=== PATIENT | male | born 1960 | race African-American/Black ===

== ENCOUNTER 2025-04-13 14:35 | Inpatient (IN) | payer OTHER ==
[2025-04-13] MEDS: SODIUM CHLORIDE 0.9% 500 ML INFUS.BAG IV ONE (15:34)
[2025-04-13 15:36] LABS: ABSOLUTE IMMATURE GRANULOCYTES 0.01 x10^3/uL (0.0-0.031); BASOPHILS # 0.04 x10^3/uL (0.01-0.08); EOSINOPHIL % 5.7 % (0.8-7.0); EOSINOPHILS # 0.33 x10^3/uL (0.04-0.54); MCHC 32.6 g/dl (32.3-36.5); MEAN CELL VOLUME 91.9 fl (79.0-92.2); MEAN PLT VOLUME 10.1 fl (9.4-12.4); MONOCYTE # 0.44 x10^3/uL (0.30-0.82); MONOCYTE % 7.6 % (5.3-12.2); RDW 13.3 % (12.2-16.4)
[2025-04-13 15:59] LABS: GLUCOSE,RANDOM 83.0 mg/dL (74-106); TOT PROT 6.9 g/dl (6.4-8.2)
[2025-04-13 16:01] LABS: CO2 27.0 mmol/L (21-32)
[2025-04-13 16:02] LABS: ALK PHOS 57.0 U/L (40-150)
[2025-04-13 16:05] LABS: CREATININE 1.16 mg/dL (0.55-1.3); SGOT/AST 30.0 U/L (5-34); SGPT/ALT 17.0 U/L (0-55)
[2025-04-13 16:15] LABS: ERYTHROCYTE SEDIMENTATION RATE 3 mm/hr (0-20)
[2025-04-13] MEDS ORDERED: DALBAVANCIN HCL 500 MG VIAL (RESTRICTED TO ID ONLY) IVPB ONE (16:16)
[2025-04-13] MEDS ORDERED: MECLIZINE HCL 25 MG TABLET (FP) ONE (16:17)
[2025-04-13 16:27] LABS: HCV DIAGNOSTIC IN-HOUSE W/RFLX NON-REACTIVE (NONREACTIVE); HIV INTERPRETATION NEGATIVE (NEGATIVE)
[2025-04-13] MEDS: MECLIZINE HCL 25 MG TABLET (FP) PO ONE (16:28)
[2025-04-13] MEDS: DALBAVANCIN HCL 1,500 MG in DEXTROSE 5%-WATER - 500 ML IVPB ONE (16:28)
[2025-04-13 16:30] LABS: BG HCT 45.0 % (35.4-49); VENOUS BASE EXCESS -2.1 mmol/L (-2-2); VENOUS O2 SATURATION 67.0 % (70-80); VENOUS PCO2 50.8 mmHg (38-52); VENOUS PH 7.308 (7.310-7.410)
[2025-04-13] MEDS ORDERED: diazePAM CARPU-JECT 10 MG/2 ML DISP.SYRIN IVPUSH PRN (20:41)
[2025-04-13 23:07] LABS: N-TERMINAL BNP 4145.5 pg/mL (0-299.9)
[2025-04-14] MEDS ORDERED: diazePAM CARPU-JECT 10 MG/2 ML DISP.SYRIN IVPUSH PRN (04:00)
[2025-04-14 05:45] VITALS: BMI 23.1
[2025-04-14 06:41] LABS: ABSOLUTE IMMATURE GRANULOCYTES 0.01 x10^3/uL (0.0-0.031); BASOPHILS # 0.06 x10^3/uL (0.01-0.08); EOSINOPHIL % 5.6 % (0.8-7.0); EOSINOPHILS # 0.42 x10^3/uL (0.04-0.54); MCHC 33.0 g/dl (32.3-36.5); MEAN CELL VOLUME 91.3 fl (79.0-92.2); MEAN PLT VOLUME 11.0 fl (9.4-12.4); MONOCYTE # 0.64 x10^3/uL (0.30-0.82); MONOCYTE % 8.5 % (5.3-12.2); RDW 13.2 % (12.2-16.4)
[2025-04-14] MEDS ORDERED: ALBUTEROL SO4 2.5/IPRATROPIUM 0.5 INH SOL 3 ML VIAL.NEB. NEB PRN (06:52)
[2025-04-14 06:54] LABS: GLUCOSE,RANDOM 85.0 mg/dL (74-106)
[2025-04-14 06:55] LABS: TOT PROT 6.5 g/dl (6.4-8.2)
[2025-04-14 06:56] LABS: CO2 26.0 mmol/L (21-32)
[2025-04-14 06:57] LABS: ALK PHOS 53.0 U/L (40-150)
[2025-04-14 07:00] LABS: CREATININE 1.2 mg/dL (0.55-1.3); SGOT/AST 23.0 U/L (5-34); SGPT/ALT 12.0 U/L (0-55)
[2025-04-14] MEDS: ALBUTEROL SO4 2.5/IPRATROPIUM 0.5 INH SOL 3 ML VIAL.NEB. NEB SCH (07:40)
[2025-04-14] MEDS: predniSONE 20 MG TABLET (UD) PO SCH (09:29)
[2025-04-14] MEDS: ENOXAPARIN NA (PORCINE) 40 MG/0.4 ML DISP.SYRIN SQ SCH (09:29)
[2025-04-14] MEDS: SILVER SULFADIAZINE 1% TOP CREAM 400 GM JAR TP SCH (11:51)
[2025-04-14] MEDS: CEFTRIAXONE 2 GM in DEXTROSE 5%-WATER 100 ML IVPB SCH (15:07)
[2025-04-14] MEDS: FOLIC ACID 1 MG TABLET (FP) PO SCH (15:07)
[2025-04-14] MEDS: THIAMINE 100 MG TABLET PO SCH (15:07)
[2025-04-15 07:16] LABS: ABSOLUTE IMMATURE GRANULOCYTES 0.01 x10^3/uL (0.0-0.031); BASOPHILS # 0.05 x10^3/uL (0.01-0.08); EOSINOPHIL % 1.6 % (0.8-7.0); EOSINOPHILS # 0.15 x10^3/uL (0.04-0.54); MCHC 32.5 g/dl (32.3-36.5); MEAN CELL VOLUME 92.1 fl (79.0-92.2); MEAN PLT VOLUME 11.0 fl (9.4-12.4); MONOCYTE # 0.78 x10^3/uL (0.30-0.82); MONOCYTE % 8.3 % (5.3-12.2); RDW 13.3 % (12.2-16.4)
[2025-04-15 07:26] LABS: GLUCOSE,RANDOM 81.0 mg/dL (74-106); TOT PROT 6.4 g/dl (6.4-8.2)
[2025-04-15 07:28] LABS: CO2 26.0 mmol/L (21-32)
[2025-04-15 07:29] LABS: ALK PHOS 47.0 U/L (40-150)
[2025-04-15 07:32] LABS: CREATININE 0.97 mg/dL (0.55-1.3); SGOT/AST 17.0 U/L (5-34); SGPT/ALT 11.0 U/L (0-55)
[2025-04-15] MEDS: FUROSEMIDE 40 MG/4 ML INJECTABLE VIAL IVPUSH ONE (17:33)
[2025-04-15] MEDS: FLUTICASONE/UMECLIDIN/VILANTER(200-62.5-25 TRELEGY ELLIPTA) INAHLER IH SCH (18:03)
[2025-04-15] MEDS: CARVEDILOL 3.125 MG TABLET (FP) PO SCH (21:27)
[2025-04-16 06:49] LABS: ABSOLUTE IMMATURE GRANULOCYTES 0.02 x10^3/uL (0.0-0.031); BASOPHILS # 0.04 x10^3/uL (0.01-0.08); EOSINOPHIL % 1.7 % (0.8-7.0); EOSINOPHILS # 0.17 x10^3/uL (0.04-0.54); MCHC 33.8 g/dl (32.3-36.5); MEAN CELL VOLUME 90.8 fl (79.0-92.2); MEAN PLT VOLUME 10.6 fl (9.4-12.4); MONOCYTE # 0.75 x10^3/uL (0.30-0.82); MONOCYTE % 7.3 % (5.3-12.2); RDW 13.2 % (12.2-16.4)
[2025-04-16 07:02] LABS: GLUCOSE,RANDOM 90.0 mg/dL (74-106); TOT PROT 6.2 g/dl (6.4-8.2)
[2025-04-16 07:03] LABS: CO2 29.0 mmol/L (21-32)
[2025-04-16 07:05] LABS: ALK PHOS 44.0 U/L (40-150)
[2025-04-16 07:07] LABS: SGPT/ALT 13.0 U/L (0-55)
[2025-04-16 07:08] LABS: CREATININE 1.04 mg/dL (0.55-1.3); SGOT/AST 19.0 U/L (5-34)
[2025-04-16 23:01] VITALS: RESP 18
[2025-04-17 06:32] LABS: ABSOLUTE IMMATURE GRANULOCYTES 0.03 x10^3/uL (0.0-0.031); BASOPHILS # 0.04 x10^3/uL (0.01-0.08); EOSINOPHIL % 1.1 % (0.8-7.0); EOSINOPHILS # 0.13 x10^3/uL (0.04-0.54); MCHC 32.4 g/dl (32.3-36.5); MEAN CELL VOLUME 91.3 fl (79.0-92.2); MEAN PLT VOLUME 10.5 fl (9.4-12.4); MONOCYTE # 0.74 x10^3/uL (0.30-0.82); MONOCYTE % 6.5 % (5.3-12.2); RDW 13.2 % (12.2-16.4)
[2025-04-17 12:09] VITALS: BP 109/64; PULSE 92; TEMP 98.6
== END 2025-04-17 13:32 | disposition home or self-care (01) | DRG 603 ==
LOC: JER 14:35 → JERBED 17:47 → J4W 04-14 02:14 → OBSVTOIN 04-14 16:55
PROVIDERS: ADMIT Internal Medicine; ATTEND Internal Medicine
DX: L03.116 Cellulitis of left lower limb (principal); I42.0 Dilated cardiomyopathy; J44.1 Chronic obstructive pulmonary disease with (acute) exacerbation; I50.22 Chronic systolic (congestive) heart failure; F10.10 Alcohol abuse, uncomplicated; K42.9 Umbilical hernia without obstruction or gangrene; F90.9 Attention-deficit hyperactivity disorder, unspecified type
CPT/HCPCS: 36415; 71045-TC-FY; 71250-TC; 80053; 80307; 82010; 82550; 82803; 82962; 83605; 83735; 83880; 84100; 84484; 85025; 85651; 86140; 86803; 87040; 87070; 87081; 87205; 87389; 87637-QW; 93005; 93010; 93306-TC; 94640; 97116-GP; 97161-GP; 99285-25; G0378; J0875